=== PATIENT | male | born 1955 | race Hispanic/Latino ===

== ENCOUNTER 2022-03-07 15:07 | Emergency (ER) | payer MEDICARE ==
[~2022-03-07] VITALS: Ht 177.8 cm; Wt 93.9 kg
[2022-03-07] MEDS ORDERED: BEBTELOVIMAB 175 MG INJ IV ONE (17:00)
[2022-03-07 18:18] VITALS: BP 131/78
== END 2022-03-07 18:15 | disposition home or self-care (01) ==
LOC: ER 16:30
DX: R50.9 Fever, unspecified (principal); U07.1 COVID-19; I10 Essential (primary) hypertension; E78.5 Hyperlipidemia, unspecified; F32.A Depression, unspecified
CPT/HCPCS: 99282